=== PATIENT | female | born 1970 | race Caucasian/White ===

== ENCOUNTER 2016-09-05 12:57 | Emergency (ER) | payer OTHER ==
--- NOTE | ~2016-09-05 | EKG ---
PATIENT: BABAK OLIVEIRA UNIT #: [id number] Ventricular Rate: 67 BPM Atrial Rate: 67 BPM P-R Interval: 146 ms QRS Duration: 94 ms Q-T Interval: 414 ms QTC Calculation(Bezet): 437 ms P [place]: 14 degrees Calculated R [place]: 51 degrees Calculated T [place]: 78 degrees Diagnosis Line: Normal sinus rhythm Diagnosis Line: Normal ECG Diagnosis Line: When compared with ECG of 22-FEB-2013 20:58, Diagnosis Line: No significant change was found Diagnosis Line: Confirmed by MEL CORONADO MD ([id number]) on Diagnosis Line: 09/05/2016 4:33:55 PM INTERPRETING MD: IVONNE MARIEE
--- NOTE | ~2016-09-05 | CT71 ---
[facility] A Service of [facility] RADIOLOGY TEXT RESULTS PATIENT: BABAK OLIVEIRA LOCATION: [facility] : 68 UNIT #: [id number] AGE: [address]: Emilio Urrutia MD SEX: F ORDER DR: [id number] [address] [place], [place] [address] [id number] MR#: [id number] Acc #: [id number] NAME: BABAK OLIVEIRA : 1970 SEX: F STUDY DATE/TIME: 09/05/2016 14:50 UNIT: DON ROOM: STUDY DESCRIPTION: CT Head Wo Contrast Attending Physician: Emilio Urrutia M.D. Ordering Physician: Emilio Urrutia M.D. Primary Care Physician: Elle Peralta M.D. MEDICAL IMAGING REPORT This report is preliminary unless electronic signature is present EXAM CT head without contrast, 09/05/2016. HISTORY 45-year-old female with seizure-like activity today. COMPARISON CT head, 09/29/2015. TECHNIQUE Routine unenhanced axial images performed through the brain. This CT exam was performed with one or more of the following radiation dose reduction techniques: automatic exposure control, adjustment of mA and/or kV according to patient size, and iterative reconstruction. FINDINGS No hemorrhage, acute infarction, mass lesion, or abnormal extraaxial fluid collection. No midline shift or focal mass effect. Ventricular system is normal in size and configuration. No acute bony abnormality. Extensive mucosal thickening in the bilateral frontal sinuses and bilateral ethmoid air cells. Mild mucosal thickening bilateral sphenoid sinuses. Visualized mastoid air cells clear. IMPRESSION 1. No acute intracranial abnormality. 2. Paranasal sinus mucosal thickening, detailed above. Dictated by... Andi Black M.D. [facility] A Service [facility] RADIOLOGY TEXT RESULTS PATIENT: BABAK OLIVEIRA LOCATION: [facility] : 68 UNIT #: [id number] AGE: [address]: Emilio Urrutia MD SEX: F ORDER DR: THIS IS AN ELECTRONICALLY VERIFIED REPORT Andi Black M.D. at 09/06/2016 6:26 AM TALHA/caleb TD: 09/05/2016 15:17 JOB #: [id number] MEDICAL IMAGING REPORT Page 1 of 1 COPY
[~2016-09-05 12:57] MED LIST: ADVIL200 M1; ALBUTEROL17 GM; ALBUTEROL17 GM INH; AMITRYPTYLINE PO; AMOXICILLIN PO; ATIVAN0.5 MG; CELEXA20 MG PO; DIARRHEA MEDICATION; ILOTYCIN1 GM OD; KEFLEX500 M1 PO; LISINOPRIL; LORTAB 5/500 TA1 TA1 PO; LORTAB 7.51 TAB PO; MOTRIN400 MG PO; NO MEDICATIONS; PEN-VEE K PO; PREDNISONE PO; TUSSIONEX PENN473 ML PO; TYLENOL #3 PO; ULTRAM PO; VISTARIL PO; ZANTAC PO
[2016-09-05 14:36] LABS: BASOPHIL# 0.1 X10e3 (0-0.3); BASOPHIL% 0.4 % (0-2.5); EOSINOPHIL# 0.2 X10e3 (0-0.7); EOSINOPHIL% 1.3 % (0.0-7.0); HEMATOCRIT 48.4 % (35.0-45.0); LYMPHOCYTE# 1.3 X10e3 (1.0-3.5); LYMPHOCYTE% 9.2 % (17.0-45.0); MEAN CELL VOLUME 98.3 FL (83-96); MEAN CORPUSCULAR HEMOGLOBIN 32.5 PG (28-34); MEAN CORPUSCULAR HGB CONC 33.1 g/dL (30-36); MONOCYTE# 0.6 X10e3 (0-1.0); MONOCYTE% 3.8 % (3.0-12.0); NEUTROPHIL# 12.5 X10e3 (1.5-7.1); NEUTROPHIL% 85.3 % (40-75); PLATELET COUNT 273 X10e3 (140-420); RED BLOOD COUNT 4.92 X10e (3.90-5.30); RED CELL DISTRIBUTION WIDTH 13.1 % (11.0-15.5); WHITE BLOOD COUNT 14.7 X10e3 (4.0-10.5)
[2016-09-05 14:47] LABS: DIFF IND NO
[2016-09-05 15:05] LABS: BUN/CREATININE RATIO 11.42; CALCIUM SERUM 8.7 mg/dL (8.4-10.2); CREATININE SERUM 0.7 mg/dL (0.6-1.4); GLOM FILT RATE Estimated 103.9 mL/min (>60); POTASSIUM 3.5 mmol/L (3.5-5.1)
[2016-09-05 15:15] LABS: URINE SOURCE CLEAN CATCH
[2016-09-05 15:25] LABS: URINE APPEARANCE CLEAR; URINE BILIRUBIN NEG (NEG); URINE BLOOD NEG (NEG); URINE COLOR YELLOW; URINE GLUCOSE NEG (NEG); URINE KETONE NEG (NEG); URINE LEUKOCYTE ESTERASE NEG (NEG); URINE NITRATE NEG (NEG); URINE PH 6.5 (5-8); URINE PROTEIN NEG (NEG); URINE SPECIFIC GRAVITY 1.007 (1.003-1.035); URINE UROBILINOGEN 0.2 MG/DL (NEG)
[2016-09-05 15:35] LABS: AMPHETAMINE NEG (NEG); BARBITURATES NEG (NEG); BENZODIAZEPINES NEG (NEG); COCAINE NEG (NEG); MARIJUANA POS (NEG); OPIATES NEG (NEG); TRICYCLIC ANTIDEPRESSANTS NEG (NEG); U METHADONE NEG (NEG)
== END 2016-09-05 16:14 | disposition home or self-care (01) ==
LOC: CED 12:57
PROVIDERS: Emergency Medicine
DX: R56.9 Unspecified convulsions (principal); F17.200 Nicotine dependence, unspecified, uncomplicated; Z88.5 Allergy status to narcotic agent
CPT/HCPCS: 70450; 80048; 80307; 81003; 85025; 93005; 96374; 99284; J1953

== ENCOUNTER 2016-09-06 21:14 | Emergency (ER) | payer OTHER | END 2016-09-06 23:18 | disposition home or self-care (01) | LOC: CED 21:14 | DX: G40.909 Epilepsy, unspecified, not intractable, without status epilepticus (principal); Z88.5 Allergy status to narcotic agent | CPT/HCPCS: 99284 ==

== ENCOUNTER → 2016-10-23 | Outpatient (CLI) | payer OTHER ==
--- NOTE | ~2016-10-23 | MY11 ---
[facility] A Service of [facility] RADIOLOGY TEXT RESULTS PATIENT: BABAK OLIVEIRA LOCATION: [facility] : 68 UNIT #: [id number] AGE: [address]: Heath Ardon MD SEX: F ORDER DR: [id number] [address] [address] [id number] O MR#: [id number] Acc #: [id number] NAME: BABAK OLIVEIRA. : 1970 SEX: F STUDY DATE/TIME: 10/23/2016 12:07 UNIT: [facility] ROOM: STUDY DESCRIPTION: MY Mammogram Screening Dig García Attending Physician: Heath Ardon M.D. Referring Physician: Heath Ardon M.D. Ordering Physician: Haeth Ardon M.D. Primary Care Physician: Heath Ardon M.D. MEDICAL IMAGING REPORT This report is preliminary unless electronic signature is present. EXAM Digital screening mammogram 10/23/2016 HISTORY 45-year-old woman, no risk elevation. Previous right breast biopsy. Annual screen. COMPARISON STUDIES Comparison mammogram 01/07/2009 Digital imaging of each breast was completed utilizing a two-view examination of each breast in craniocaudal and mediolateral-oblique projections. Review and interpretation of digital mammograms include a second review in conjunction with FDA-approved CAD device. There is a normal parenchymal presentation bilaterally consistent with the patient's age. There are no breast masses imaged and no parenchymal asymmetry is visualized. There are no suspicious microcalcifications and I see no focal architectural disturbance. IMPRESSION Negative screening digital mammogram. One-year followup recommended. Patients over the age of 40 are entered into a reminder system with target due date for the next mammogram. A result letter will also be sent to the patient. BIRADS: 1 Negative Dictated by... Luis Monge M.D. THIS IS AN ELECTRONICALLY VERIFIED REPORT [facility] A Service of [facility] RADIOLOGY TEXT RESULTS PATIENT: BABAK OLIVEIRA LOCATION: [facility] : 68 UNIT #: [id number] AGE: [address]: Heath Ardon MD SEX: F ORDER DR: Luis Monge M.D. at 10/30/2016 7:11 AM Anthony TD: 10/23/2016 15:10 JOB #: [id number] MEDICAL IMAGING REPORT Page 1 of 1
== END | disposition home or self-care (01) ==
LOC: SMAM 11:26
DX: Z12.31 Encounter for screening mammogram for malignant neoplasm of breast (principal); Z98.890 Other specified postprocedural states
CPT/HCPCS: G0202